=== PATIENT | male | born 1960 | race Caucasian/White ===

== ENCOUNTER 2020-10-24 23:48 | Emergency (ER) | payer OTHER ==
[~2020-10-24] VITALS: Ht 170.2 cm; Wt 72.6 kg
[2020-10-25 00:55] LABS: ABSOLUTE BASOPHILS 0.1 thou/uL (0.0-0.2); ABSOLUTE EOSINOPHILS 0.2 thou/uL (0.0-0.7); ABSOLUTE LYMPHOCYTES 1.4 thou/uL (0.8-5.3); ABSOLUTE MONOCYTES 0.6 thou/uL (0.0-1.2); ABSOLUTE NEUTROPHILS 5.4 thou/uL (1.6-8.1); BASOPHILS 0.8 %; EOSINOPHILS 2.4 %; HEMATOCRIT 41.5 % (42.0-52.0); LYMPHOCYTES 17.7 %; MCH 31.1 pg (26.0-34.0); MCHC 33.7 g/dL (28.0-37.0); MCV 92.3 fL (80.0-100.0); MONOCYTES 8.1 %; MPV 7.3 fl. (7.2-11.1); NUCLEATED RBCS 0 /100WBC; PLATELET COUNT* 279 thou/uL (150-400); RDW-CV 12.6 % (10.5-14.5); WBC 7.6 thou/uL (4.0-11.0)
[2020-10-25 01:00] LABS: CALCIUM 8.2 mg/dL (8.5-10.1); POTASSIUM 3.5 mmol/L (3.5-5.1)
[2020-10-25 01:05] LABS: ALBUMIN 3.2 g/dL (3.4-5.0); TOTAL BILIRUBIN 0.2 mg/dL (<0.1-1.0); TOTAL PROTEIN 7.2 g/dL (6.4-8.2)
[2020-10-25] MEDS ORDERED: LISINOPRIL5 MG PO (03:39)
[2020-10-25] MEDS ORDERED: HYDROCHLOROTHIA25 M2 PO (03:39)
[2020-10-25 03:48] VITALS: BP 126/84
--- NOTE | 2020-10-27 15:04 | EKG ---
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: [place] : 1960 Requested By: Rola Lin Order Number: [id number] MD: Dudley Gallardo Measurements Intervals [place] Rate: 83 P: 62 TX: 145 QRS: 31 QRSD: 103 T: 30 QT: 436 QTc: 513 Interpretive Statements Sinus rhythm Probable left atrial enlargement RSR' in V1 or V2, probably normal variant Left ventricular hypertrophy Prolonged QT interval No previous ECG available for comparison Electronically Signed On 10-27-2020 15:04:39 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
== END 2020-10-25 03:49 | disposition home or self-care (01) ==
LOC: M.ERS 23:48
PROVIDERS: Personal Emergency Response Attendant
DX: I16.0 Hypertensive urgency (principal); I10 Essential (primary) hypertension